=== PATIENT | female | born 1975 | race Caucasian/White ===

== ENCOUNTER 2017-10-29 15:13 | Emergency (ER) | payer OTHER ==
[2017-10-29 15:18] VITALS: BP 131/76; PULSE 74; TEMP 97.9; BMI 39.9
--- NOTE | 2017-10-29 16:55 | PDOC ---
History of Present Illness - General Chief Complaint: Cold Symptoms Stated Complaint: COLD SYMPTOMS Time Seen by Provider: 10/29/17 15:25 History Source: Patient Exam Limitations: No Limitations - History of Present Illness Timing/Duration: intermittent Severity: mild Associated Symptoms: reports: other (nasasl congestion for one mth with yellowish discharge, post nasal discharge, cough productive one week yellowish ) Past History - Past Medical History Allergies/Adverse Reactions: Allergies Allergy/AdvReac Type Severity Reaction Status Date / Time No Known Allergies Allergy Verified 10/29/17 15:17 Home Medications: Ambulatory Orders Albuterol Sulfate Inhaler - [Ventolin Hfa Inhaler -] 2 inh PO Q4H PRN #1 inh Azithromycin [Zithromax 250mg Tablets -] 250 mg PO UTDICT #6 tab 10/29/17 Fexofenadine/Pseudoephedrine [Erendira-D 24 Hour Tablet] 1 each PO DAILY #10 tab.er.24h 10/29/17 Guaifenesin Dm [Mucinex Dm -] 1 tab PO BID PRN #10 tab.er.12h 10/29/17 COPD: No - Suicide/Smoking/Psychosocial Hx Smoking History: Never smoked Review of Systems - Review of Systems Able to Perform ROS?: Yes Constitutional: No: Symptoms Reported HEENTM: Yes: Nose Congestion (with post nasal drip for 4 weeks ) Respiratory: Yes: Productive cough (yellowish for one week ), Other (chest tightness at times in morning ) Cardiac (ROS): No: Symptoms Reported ABD/GI: No: Symptoms Reported : No: Symptoms Reported Musculoskeletal: No: Symptoms Reported Integumentary: No: Symptoms Reported Neurological: No: Symptoms reported *Physical Exam - Vital Signs Last Vital Signs Temp Pulse Resp BP Pulse Ox 97.9 F 74 18 131/76 98 10/29/17 15:17 10/29/17 15:17 10/29/17 15:17 10/29/17 15:17 10/29/17 15:17 - Physical Exam General Appearance: Yes: Appropriately Dressed HEENT: positive: TMs Normal, Nasal Congestion (b/l ). negative: Pharyngeal Erythema, Tonsillar Exudate, Tonsillar Erythema Neck: negative: Lymphadenopathy (R), Lymphadenopathy (L) Respiratory/Chest: positive: Lungs Clear, Normal Breath Sounds. negative: Chest Tender, Respiratory Distress Cardiovascular: positive: Regular Rhythm, Regular Rate, S1, S2 Integumentary: positive: Normal Color Neurologic: positive: Alert, Normal Response, Responsive *DC/Admit/Observation/Transfer Diagnosis at time of Disposition: Nasal congestion, Post-nasal drip, Bronchitis - Discharge Dispostion Disposition: HOME Condition at time of disposition: Stable - Prescriptions Prescriptions: Albuterol Sulfate Inhaler - [Ventolin Hfa Inhaler -] 2 inh PO Q4H PRN #1 inh PRN Reason: Short Of Breath/Wheezing Azithromycin [Zithromax 250mg Tablets -] 250 mg PO UTDICT #6 tab Fexofenadine/Pseudoephedrine [Erendira-D 24 Hour Tablet] 1 each PO DAILY #10 tab.er.24h Guaifenesin Dm [Mucinex Dm -] 1 tab PO BID PRN #10 tab.er.12h PRN Reason: Cough - Referrals - Patient Instructions Additional Instructions: Follow-up with primary care provider within the next few days Return to emergency room if any difficulty breathing or any new symptoms develop Put humidifier and your room next to your bed this will help your nasal congestion Patient voiced understanding of discharge instructions and all questions were answered Have a happy holiday - Post Discharge Activity
== END 2017-10-29 17:10 | disposition home or self-care (01) ==
LOC: JERFT 15:13
DX: J40 Bronchitis, not specified as acute or chronic (principal); R09.81 Nasal congestion; R09.82 Postnasal drip
CPT/HCPCS: 99281-25

== ENCOUNTER 2018-01-14 18:38 | Emergency (ER) | payer OTHER ==
[2018-01-14 19:16] VITALS: BP 142/67; PULSE 79; TEMP 98.3; BMI 41.5
--- NOTE | 2018-01-14 19:51 | PDOC ---
History of Present Illness - General Chief Complaint: Ear Problem Stated Complaint: Ear Problem Time Seen by Provider: 01/14/18 19:22 History Source: Patient Exam Limitations: No Limitations - History of Present Illness Initial Comments: 01/14/18 19:45 Best Contact:[phone] Pmhx:\N/A Pshx:N/A Allergies:NKDA 42-year-old female presents to the emergency department complaining of left earache since last evening. Pain is described as 8/10 nonradiating intermittent dull discomfort to the left ear which increased in pain with irregular movements and alleviated minimally with Tylenol. Patient denies headache, dizziness, lightheadedness, facial pain, nasal congestion, rhinorrhea, sore throat. Patient denies cough or any other symptoms. Patient did not take anything for pain Past History - Past Medical History Allergies/Adverse Reactions: Allergies Allergy/AdvReac Type Severity Reaction Status Date / Time No Known Allergies Allergy Verified 01/14/18 19:14 Home Medications: Ambulatory Orders NK [No Known Home Medication] 01/14/18 COPD: No - Suicide/Smoking/Psychosocial Hx Smoking History: Never smoked Review of Systems - Review of Systems Able to Perform ROS?: Yes Comments:: 01/14/18 19:42 CONSTITUTIONAL: Absent: fever, chills, diaphoresis, generalized weakness, malaise, loss of appetite HEENT: +left earache Absent: rhinorrhea, nasal congestion, throat pain, throat swelling, difficulty swallowing, mouth swelling, ear pain, eye pain, visual Changes CARDIOVASCULAR: Absent: chest pain, loss of consciousness, palpitations, irregular heart rate, peripheral edema RESPIRATORY: Absent: cough, shortness of breath, dyspnea with exertion, orthopnea, wheezing, stridor, hemoptysis GASTROINTESTINAL: Absent: abdominal pain, abdominal distension, nausea, vomiting, diarrhea, constipation, melena, hematochezia GENITOURINARY: Absent: dysuria, frequency, urgency, hesitancy, hematuria, flank pain, genital pain MUSCULOSKELETAL: Absent: myalgia, arthralgia, joint swelling SKIN: Absent: rash, itching, pallor Is the patient limited [place] proficient: No *Physical Exam - Vital Signs Last Vital Signs Temp Pulse Resp BP Pulse Ox 98.3 F 79 18 142/67 99 01/14/18 19:14 03/12/18 19:14 01/14/18 19:14 01/14/18 19:14 01/14/18 19:14 - Physical Exam Comments: 01/14/18 19:44 GENERAL: Well developed, well nourished. Awake and alert. No acute distress. HEENT: +cerumen impaction after irrigation; TM: erythema/bulging Normocephalic, atraumatic. PERRLA, EOMI. No conjunctival pallor. Sclera are non- icteric. Moist mucous membranes. Oropharynx is clear. NECK: Supple. Full ROM. No JVD. Carotid pulses 2+ and symmetric, without bruits. No thyromegaly. No lymphadenopathy. CARDIOVASCULAR: Regular rate and rhythm. No murmurs, rubs, or gallops. Distal pulses are 2+ and symmetric. PULMONARY: No evidence of respiratory distress. Lungs clear to auscultation bilaterally. No wheezing, rales or rhonchi. ABDOMINAL: Soft. Non-tender. Non-distended. No rebound or guarding. No organomegaly. Normoactive bowel sounds. MUSCULOSKELETAL Normal range of motion at all joints. No bony deformities or tenderness. No CVA tenderness. EXTREMITIES: No cyanosis. No clubbing. No edema. No calf tenderness. SKIN: Warm and dry. Normal capillary refill. No rashes. No jaundice. *DC/Admit/Observation/Transfer Diagnosis at time of Disposition: Left ear impacted cerumen LOM (left otitis media) Qualifiers: Otitis media type: unspecified Qualified Code(s): H66.92 - Otitis media, unspecified, left ear - Discharge Dispostion Condition at time of disposition: Stable - Referrals Referrals: Dawit Dale MD [Staff Physician] - - Patient Instructions Printed Discharge Instructions: DI for Cerumen Impaction, Middle Ear Infection Additional Instructions: Take Tylenol alternating with Motrin every 6 hours as needed for pain Antibiotics as prescribed until completion/amoxicillin Return back to the emergency department for severe/persistent or worsening symptoms Follow-up with your physician within 48 hours - Post Discharge Activity Progress Note - Progress Note Progress Note: Procedure: Left ear irrigation with warm normal saline Cerumen removed successfully
[2018-01-14] MEDS ORDERED: AMOXICILLIN 500 MG CAPSULE (FP) PO ONE (20:00)
[2018-01-14] MEDS ORDERED: NEOMYCIN/POLYMYXN/HC OTIC SUSPENSION 10 ML BOTTLE AS ONE (20:01)
[2018-01-14] MEDS ORDERED: AMOXICILLIN 250 MG CAPSULE ONE (20:04)
[2018-01-14] MEDS ORDERED: NEOMYCIN/POLYMYXN/HC OTIC SOLUTION 10 ML BOTTLE ONE (20:04)
== END 2018-01-14 20:12 | disposition home or self-care (01) ==
LOC: JERFT 18:38
PROC: 3E1B78Z Irrigation of Ear using Irrigating Substance, Via Natural or Artificial Opening (ICD-10-PCS; principal; 2018-01-14)
DX: H66.92 Otitis media, unspecified, left ear (principal); H61.22 Impacted cerumen, left ear
CPT/HCPCS: 69209-50; 99281-25

== ENCOUNTER 2022-10-25 16:29 | Emergency (ER) | payer OTHER ==
[2022-10-25 16:46] VITALS: RESP 19; BMI 34.9
[2022-10-25] MEDS ORDERED: ACETAMINOPHEN 500 MG TABLET (FP) PO ONE (16:48)
[2022-10-25] MEDS ORDERED: ACETAMINOPHEN 500 MG TABLET (FP) ONE (16:53)
[2022-10-25 18:19] VITALS: BP 108/66; PULSE 110; TEMP 102.9
[2022-10-25] MEDS ORDERED: IBUPROFEN 600 MG TABLET (FP) PO ONE ×2 (18:21→18:28)
== END 2022-10-25 18:40 | disposition home or self-care (01) ==
LOC: JER 16:29
DX: J09.X2 Influenza due to identified novel influenza A virus with other respiratory manifestations (principal)
CPT/HCPCS: 0241U-QW; 99283-25